=== PATIENT | male | born 1975 | race Caucasian/White ===

== ENCOUNTER 2018-05-05 19:09 | Emergency (ER) | payer MEDICARE ==
[~2018-05-05] VITALS: Ht 165.1 cm; Wt 81.8 kg
[2018-05-05 19:24] VITALS: Ht 165.1 cm; Wt 81.8 kg
[2018-05-05] MEDS ORDERED: LIPITOR40 MG PO (19:25)
[2018-05-05] MEDS ORDERED: OMEPRAZOLE40 MG PO (19:25)
[2018-05-05] MEDS ORDERED: LAMICTAL200 MG PO (19:25)
[2018-05-05] MEDS ORDERED: CYMBALTA60 MG PO (19:26)
[2018-05-05] MEDS ORDERED: VESICARE10 MG PO (19:26)
[2018-05-05] MEDS ORDERED: DEPAKOTE250 MG PO (19:26)
[2018-05-05] MEDS ORDERED: ZYPREXA15 MG PO (19:26)
[2018-05-05] MEDS ORDERED: KLONOPIN1 MG PO (19:26)
[2018-05-05 19:45] LABS: APPEARANCE CLEAR (CLEAR); BILIRUBIN NEGATIVE (NEGATIVE); COLOR STRAW (YELLOW); GLUCOSE NEGATIVE (NEGATIVE); KETONE NEGATIVE (NEGATIVE); NITRITE NEGATIVE (NEGATIVE); PROTEIN NEGATIVE (NEGATIVE); UROBILINOGEN NORMAL (NORMAL)
[2018-05-05 19:46] LABS: BASOPHILS 0.4 % (0-2); EOSINOPHILS 1.3 % (0-7); HEMOGLOBIN 11.4 g/dL (13.5-17.5); IMMATURE GRANULOCYTES 0.4 % (0-5); MCH 24.6 pg (26.0-34.0); MCHC 31.7 g/dL (31.0-37.0); MCV 77.8 fL (80.0-100.0); MEAN PLATELET VOLUME 10.1 fL (7.4-10.4); MONOCYTES 8.2 % (2-11); NEUTROPHILS 61.7 % (40-80); PLATELET COUNT 208 10x3/uL (130-400); RBC 4.63 10x6/uL (4.20-6.10); RDW 16.7 % (11.5-14.5); WBC 6.7 10x3/uL (4.8-10.8)
[2018-05-05 19:47] LABS: BACTERIA MODERATE /hpf (NONE SEEN)
[2018-05-05 19:50] LABS: UDS - AMPHET NEGATIVE QUAL (NEGATIVE); UDS - BARB NEGATIVE QUAL (NEGATIVE); UDS - BENZO NEGATIVE QUAL (NEGATIVE); UDS - COCAINE NEGATIVE QUAL (NEGATIVE); UDS - OPIATE NEGATIVE QUAL (NEGATIVE); UDS - PCP NEGATIVE QUAL (NEGATIVE); UDS - THC NEGATIVE QUAL (NEGATIVE)
[2018-05-05 20:07] LABS: ANION GAP 6.9 mmol/L (8-16); CALCIUM 9.2 mg/dL (8.5-10.1); CREATININE - SERUM 1.4 mg/dL (0.6-1.3); THYROID STIMULATING HORMONE 2.57 uIU/mL (0.36-3.74)
[2018-05-05 20:08] LABS: POTASSIUM - SERUM 2.9 mmol/L (3.5-5.1)
[2018-05-05] MEDS ORDERED: CIPRO500 MG PO (22:07)
[2018-05-05 23:55] VITALS: BP 136/79
== END 2018-05-05 23:58 | disposition home or self-care (01) ==
LOC: D.ER 19:09
PROVIDERS: Family Medicine
DX: F41.9 Anxiety disorder, unspecified (principal); E87.6 Hypokalemia; N39.0 Urinary tract infection, site not specified; Z87.820 Personal history of traumatic brain injury; F17.200 Nicotine dependence, unspecified, uncomplicated